=== PATIENT | female | born 1955 | race Caucasian/White ===

== ENCOUNTER 2016-11-19 09:03 | Emergency (ER) ==
--- NOTE | 2016-11-19 10:14 | PROVIDER DOCUMENTATION ---
HPI-Musculoskeletal Pain/Inj - GENERAL Chief Complaint: Fall Stated Complaint: FALL FROM STANDING Time Seen by Provider: 11/19/16 09:51 Source: patient - HX OF PRESENT ILLNESS-MUSKULOSKELTAL Nature of Presenting Problem: patient is a 61 y/o F that presents to the ER with bilateral knee and right ankle pain after getting tripped wearing new shoes and fell on concrete to knees. she got her right ankle twisted. No other injury Quality of Pain: reports: dull Severity in ED: moderate Onset/Duration: abrupt, just prior to arrival Timing: still present, constant Modifying Factors: worse with: movement Any recent injury?: No Locality of Occurance: Home Similar Symptoms Previously?: No Recently seen or treated by another doctor?: No - FALL INJURY Location of Pain/Injury: reports: lower extremity (bilateral knees, right ankle) Pain Radiation: reports: no radiation Reason for Fall: reports: tripped Symptoms prior to fall:: reports: none Loss of Consciousness: no loss of consciousness Injury Associated Symptoms: reports: joint pain, trouble walking. denies: back/ neck pain, chest pain Review of Systems - Adult - REVIEW OF SYSTEMS - ADULT Constitutional: reports: no symptoms reported Eyes: reports: no symptoms reported Ears, Nose, Mouth & Throat: reports: no symptoms reported Cardiovascular: reports: no symptoms reported Respiratory: reports: no symptoms reported Gastrointestinal: reports: no symptoms reported Genitourinary: reports: no symptoms reported Musculoskeletal: reports: see HPI Integumentary: reports: no symptoms reported Neurological: reports: no symptoms reported Psychiatric: reports: no symptoms reported Endocrine: reports: no symptoms reported Hematologic/Lymphatic: reports: no symptoms reported Allergic/Immunologic: reports: no symptoms reported All Other Systems: Reviewed and Negative Past History - Adult - PAST MEDICAL HISTORY-ADULT Review of Records: reports: Old Records Reviewed, Nursing Assessment Review, Medications Reviewed - PRIOR SURGERIES/PROCEDURES Surgical/Procedure History: reports: orthopedic (extremity) - IMMUNIZATION STATUS Childhood Immunizations: See Nurse Assessment Flu Vaccine: See Nurse Assessment - FAMILY HISTORY Family History: reviewed, not pertinent - SOCIAL HISTORY Smoking: non-smoker Alcohol Use Frequency: occasionally Living Situation: family Physical Exam-Injury Related - Physical Exam-Injury Related Initial Vital Signs Reviewed: Yes General Appearance: alert, no apparent distress Eyes: PERRL/EOMI, pink conjunctivae Head, Ears, Nose, Mouth & Throat: normocephalic/atraumatic, moist mucous membranes, normal ENT inspection Neck: non-tender, full range of motion, normal inspection Respiratory: lungs clear, normal breath sounds, no respiratory distress, no accessory muscle use Cardiovascular: regular rate, rhythm, no edema, no murmur Abdominal Exam: normal bowel sounds, non tender, soft Extremity: normal capillary refill, pelvis stable, joint effusion (left knee), swelling (right ankle), tenderness (bilateral knees, right ankle). negative: erythema Integumentary: normal color, warm/dry Neurologic: grossly normal, no motor/sensory deficits Psych/Mental Status: normal mood/affect, normal thought content, normal thought process, oriented x 3 - Glascow Coma Score Best Eye Response ([place]): (4) open spontaneously Best Verbal Response ([place]): (5) oriented Best Motor Response ([place]): (6) obeys commands [place] Total: 15 Progress - PLAN OF CARE/RESULTS Progress/Plan/Lab Results: plan of care-xrays 1022- paged Vital Signs Temp Pulse Resp BP Pulse Ox 11/19/16 09:28 98 F 64 20 163/113 100 No Known Allergies Allergy (Verified 11/19/16 09:31) Celecoxib [Celebrex] 200 mg PO QAM 11/19/16 Progesterone [Prometrium] 100 mg PO QHS 11/19/16 Orders Category Date Time Status FSBS [Finger Stick Blood Sugar (ED)] DIRECTED Care 11/19/16 09:35 Active ANKLE COMPLETE RIGHT [RAD] Stat Exams 11/19/16 09:29 Taken KNEE 1-2 VIEWS-LEFT [RAD] Stat Exams 11/19/16 09:30 Taken KNEE 1-2 VIEWS-RIGHT [RAD] Stat Exams 11/19/16 09:31 Taken XRAY PELVIS W/HIP 2-3VW LT [RAD] Stat Exams 11/19/16 09:34 Taken Hydromorphone [Dilaudid] Med 11/19/16 10:22 Discontinued 1 mg IM NOW ONE Promethazine [Phenergan] Med 11/19/16 10:22 Discontinued 12.5 mg IM NOW ONE pt brittany be d/c home f/u with this week, rx given, pt understood results and instructions Orders Category Date Time Status FSBS [Finger Stick Blood Sugar (ED)] DIRECTED Care 11/19/16 09:35 Active ANKLE COMPLETE RIGHT [RAD] Stat Exams 11/19/16 09:29 Taken KNEE 1-2 VIEWS-LEFT [RAD] Stat Exams 11/19/16 09:30 Taken KNEE 1-2 VIEWS-RIGHT [RAD] Stat Exams 11/19/16 09:31 Taken XRAY PELVIS W/HIP 2-3VW LT [RAD] Stat Exams 11/19/16 09:34 Taken Hydromorphone [Dilaudid] Med 11/19/16 10:22 Discontinued 1 mg IM NOW ONE Promethazine [Phenergan] Med 11/19/16 10:22 Discontinued 12.5 mg IM NOW ONE Orders Category Date Time Status Scottie Wrap Application DIRECTED Care 11/19/16 10:30 Ordered Boot, Mid-Calf Walking DIRECTED Care 11/19/16 10:30 Active FSBS [Finger Stick Blood Sugar (ED)] DIRECTED Care 11/19/16 09:35 Active ANKLE COMPLETE RIGHT [RAD] Stat Exams 11/19/16 09:29 Taken KNEE 1-2 VIEWS-LEFT [RAD] Stat Exams 11/19/16 09:30 Taken KNEE 1-2 VIEWS-RIGHT [RAD] Stat Exams 11/19/16 09:31 Taken XRAY PELVIS W/HIP 2-3VW LT [RAD] Stat Exams 11/19/16 09:34 Taken Hydromorphone [Dilaudid] Med 11/19/16 10:22 Discontinued 1 mg IM NOW ONE Promethazine [Phenergan] Med 11/19/16 10:22 Discontinued 12.5 mg IM NOW ONE - XRAY 1 XRAY: Bilateral XRAY Study: Knee Impression: Normal XRAY Interpretation: nad 2 XRAY: Left XRAY Study: Pelvis, Hip Impression: Normal XRAY Interpretation: naD 3 XRAY: Right XRAY Study: Ankle Impression: Abnormal XRAY Interpretation: FIBULA FX - CONSULTS/PCP/HOSPITALIST Notification #1 *Consult/PCP/Hospitalist*: Time Discussed: 10:28 Reason/Comments: fx fib, left knee effusion Consult Disposition: F/U in office Procedures - SPLINTING Right Lower Extremity Pre-Procedure Neurovascular Exam: Intact Pre-Fabricated Splint: Walking Boot (mid calf) Applied By: backroom associate Post Procedure Neurovascular Exam: Intact Left Lower Extremity Pre-Procedure Neurovascular Exam: Intact Pre-Fabricated Splint: Scottie Wrap Applied By: backroom associate Post Procedure Neurovascular Exam: Intact Departure - Departure Time of Disposition Order: 10:32 DIAGNOSIS: Multiple contusions, Effusion, left knee Fall Qualifiers: Encounter type: initial encounter Qualified Code(s): W19.XXXA - Unspecified fall, initial encounter Right fibular fracture Qualifiers: Encounter type: initial encounter Fibula location: distal Fracture type: closed Fracture morphology: other fracture Qualified Code(s): S82.831A - Other fracture of upper and lower end of right fibula, initial encounter for closed fracture Disposition: HOME 01 Certified Medical Emergency: Emergent Condition: Stable Additional Instructions: follow up with this week ED Follow Up Instructions: You have been treated by a care provider in the Emergency Department. These instructions are being provided to you so you can have an understanding of how to care for yourself upon discharge. Upon discharge from the Emergency Department, you are responsible for making arrangements for follow-up care by a physician of your choice. Take all prescribed medications as directed. Return to the Emergency Department immediately for any new or worsening symptoms. You may call the Physician Referral phone number at [phone] to obtain a list of Physicians who are taking new patients. Referrals: None,PCP [Primary Care Provider] - Ronny Morales MD [STAFF PHYSICIAN] - (call today for appointment this week ) Instructions: Fibular Fracture, Ankle, Adult, Treated With or Without Immobilization, Fall Prevention and Home Safety, [id number], Contusions- SportsMed, Knee Effusion, [id number] Attestation - Scribe Verification/Attestation Scribe:: Agustin Kuhn Acting as Scribe for:: Paula Zuniga Scribe documention review:: This chart was documented by a scribe and accurately reflects the service the provider performed and the decisions made by the provider. Physician Attestation - Physician Attestation I, the provider, attest to the following statement:: Paula Zuniga Physician documentation Attestation:: This documentation recorded by the scribe accurately reflects the service I personally performed and the decisions made by me.
[2016-11-19] MEDS ORDERED: PHENERGAN IM ONE (10:22)
[2016-11-19] MEDS ORDERED: DILAUDID IM ONE (10:22)
--- NOTE | 2016-11-19 11:18 | Diag Imaging Result Document ---
PROCEDURE NAME: ANKLE COMPLETE RIGHT - 11/19/2016 RIGHT ANKLE, THREE VIEWS: FINDINGS: There is a transverse fracture through the lateral malleolus with several millimeters of displacement. Soft tissue swelling is present. No fracture to the distal tibia. IMPRESSION: Fracture to the distal fibula.
--- NOTE | 2016-11-19 11:19 | Diag Imaging Result Document ---
PROCEDURE NAME: KNEE 1-2 VIEWS-LEFT - 11/19/2016 LEFT KNEE, THREE VIEWS: FINDINGS: There are longstanding arthritic changes with joint space narrowing and bone spurring. No fracture. No dislocation. IMPRESSION: No acute bony injury.
--- NOTE | 2016-11-19 11:22 | Diag Imaging Result Document ---
PROCEDURE NAME: KNEE 1-2 VIEWS-RIGHT - 11/19/2016 RIGHT KNEE, THREE VIEWS: FINDINGS: There is bone spurring with joint space narrowing. No fracture. No dislocation. IMPRESSION: No acute bony injury.
--- NOTE | 2016-11-19 11:24 | Diag Imaging Result Document ---
PROCEDURE NAME: XRAY PELVIS W/HIP 2-3VW LT - 11/19/2016 PELVIS AND LEFT HIP, TWO VIEWS: FINDINGS: No dislocation of the left hip. No fracture. The hip is slightly rotated. IMPRESSION: No acute bony injury.
[2016-11-19 11:25] VITALS: BP 143/82
== END 2016-11-19 11:54 | disposition home or self-care (01) ==
LOC: EDBD → ED 09:03
DX: S82.831A Other fracture of upper and lower end of right fibula, initial encounter for closed fracture (principal); M25.462 Effusion, left knee; T14.8 Other injury of unspecified body region; M25.562 Pain in left knee; M25.561 Pain in right knee; M25.571 Pain in right ankle and joints of right foot; R26.2 Difficulty in walking, not elsewhere classified; M25.471 Effusion, right ankle; Z79.899 Other long term (current) drug therapy; W01.0XXA Fall on same level from slipping, tripping and stumbling without subsequent striking against object, initial encounter
CPT/HCPCS: 73560; 82948; J1170; J2550